=== PATIENT | male | born 1990 | race Caucasian/White ===

== ENCOUNTER 2021-05-24 11:07 | Inpatient (IN) | payer MEDICAID, SELFPAY ==
[2021-05-24 11:17] VITALS: BP 138/90; PULSE 105; RESP 22; TEMP 37.2; O2SAT 96; BMI 34.4
[2021-05-24 11:30] VITALS: BP 126/75; PULSE 108; RESP 16; TEMP 36.5; O2SAT 97
--- NOTE | 2021-05-24 11:30 | ECG_ITS ---
[facility], Formerly [facility] Test Date: 2021-05-24 Pat Name: Raciel Red Department: Room: Gender: Male Director Of Head Start: : 1990 Requested By: Russ Joseph Order Number: [id number] Crystal MD: Stephanie Daniels M.D. Measurements Intervals Triplett Rate: 107 P: 56 DE: 130 QRS: 66 QRSD: 88 T: 16 QT: 309 QTc: 414 Interpretive Statements SINUS TACHYCARDIA ABNORMAL RHYTHM ECG Compared to ECG 01/08/2017 12:05:56 Sinus rhythm no longer present Electronically Signed On 05-25-2021 18:42:53 CDT by Stephanie Daniels M.D. [id number]
--- NOTE | 2021-05-24 11:30 | XR_ITS ---
WS: [id number] XR chest 1V portable [id number] REASON FOR EXAM: psych clearance FINDINGS: The heart and mediastinum are within normal limits. Calcified granulomatous disease in both hemithoraces. No active pulmonary parenchymal pleural disease. Bony thorax intact. XR/XR chest 1V portable [id number] IMPRESSION: No significant chest abnormality.
--- NOTE | 2021-05-24 11:38 | CT_ITS ---
WS: [id number] CT HEAD NONCONTRAST HISTORY: new onset mental issues TECHNIQUE: Contiguous axial imaging performed through the brain in 2.5 mm imaging. Bone and soft tiss ue windows. Sagittal and coronal reformats reviewed. All CT scans at [facility] use at least one of these dose optimization techniques: automated exposure control; mA and/or kV adjustment per pa tient size (includes targeted exams where dose is matched to clinical indication); or iterative recon struction. DLP: 936.18 mGy.cm COMPARISON: None available. No acute intracranial hemorrhage, midline shift or mass effect. No atrophy or prior infarcts or herniation. Ventricles: Normal size with no hydrocephalus. Paranasal sinuses: As visualized are clear. Mastoid air cells: Normal vessels. Cerumen in the external auditory canals. Calvarium and scalp: Skull is intact with no soft tissue edema or swelling. CT/CT head wo con* [id number] IMPRESSION: 1. No acute intracranial hemorrhage or edema. 2. No atrophy.
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
[2021-05-24 12:11] LABS: Basophils % 0.6 %; Eosinophils # 0.1 10^3/uL (0.0-0.8); Eosinophils % 1.2 %; Hematocrit 45.5 % (42.0-52.0); Hemoglobin 15.2 g/dL (11.7-16.6); Lymphocytes # 2.4 10^3/uL (0.8-4.8); Lymphocytes % 33.6 %; Mean Corpuscular HGB Conc 33.4 g/dL (30.0-36.0); Mean Corpuscular Hemoglobin 30.2 pg (28.0-34.0); Mean Corpuscular Volume 90.5 fl (80-94); Mean Platelet Volume 11.4 fL (7.4-10.4); Monocytes # 0.5 10^3/uL (0.2-0.9); Monocytes % 7.2 %; Neutrophils # 4.15 10^3/uL (1.8-7.7); Nucleated Red Blood Cells % 0 %; Platelet Count 258 10^3/cmm (130-400); Red Blood Count 5.03 10^6/uL (4.1-5.3); Red Cell Distribution Width 12.4 % (12.1-15.1); White Blood Count 7.3 10^3/uL (4.0-10.0)
[2021-05-24 12:46] LABS: Alanine Aminotransferase 32 U/L (0-41); Albumin Level 4.8 g/dL (3.5-5.2); Alkaline Phosphatase 108 IU/L (40-130); Anion Gap 15.6 (5-19); Aspartate Amino Transferase 22 U/L (0-40); Blood Urea Nitrogen 13 mg/dL (6-20); Calcium 9.4 mg/dL (8.5-10.5); Carbon Dioxide 25 mmol/L (22-29); Chloride 103 mmol/L (98-107); Globulin 2.4 g/dL (1.3-4.6); Glomerular Filtration Rate 113.5 mL/min (90-130); Glucose 86 mg/dL (65-115); Osmolality Calculated 287 mOsm/kg (285-295); Potassium 4.6 mmol/L (3.5-5.1); Sodium 139 mmol/L (136-145); Thyroid Stimulating Hormone 0.92 uIU/mL (0.27-4.20); Total Bilirubin 0.3 mg/dL (0.15-1.2); Total Protein 7.2 g/dL (6.6-8.7)
[2021-05-24 12:48] LABS: Urine Appearance SL Hazy (CLEAR); Urine Color Straw (Yellow); pH Urine 7 (5-7)
[2021-05-24 12:49] LABS: Add Urine Microscopic? YES; Amphetamines Screen Urine Negative (Negative); Bacteria Urine TRACE /hpf; Barbiturates Screen Urine Negative (Negative); Benzodiazepines Screen Urine Negative (Negative); Bilirubin Urine Neg (Negative); Blood Urine Trace (Negative); Cocaine Screen Urine Negative (Negative); Glucose Urine UA Norm (Normal); Ketones Urine Negative (Negative); Leukocyte Esterase Urine Negative (Negative); Mucus Urine TRACE /hpf; Nitrate Urine Negative (Negative); Opiate Screen Urine Negative (Negative); PCP Screen Urine Negative (Negative); Protein Urine Neg (Negative); RBC Urine 0-4 /hpf (0-2); THC Screen Urine Negative (Negative); Urobilinogen Urine Norm (Negative); WBC Urine 0-4 /hpf (0-5)
[2021-05-24 12:50] LABS: Add Urine Culture? No; Sperm Urine 3+ /hpf
[2021-05-24 12:57] LABS: Acetaminophen < 5.0 ug/mL (10-30); Alcohol Level < 10 mg/dL (0-10); Salicylate < 0.3 mg/dL (3-10)
[2021-05-24 14:00] VITALS: BP 127/76; PULSE 107; RESP 18; TEMP 36.9; O2SAT 97
[2021-05-24] MEDS: acetaminophen 325 mg Tablet 650 MG PO (18:58)
[2021-05-24 21:25] VITALS: BP 127/76; PULSE 88; RESP 18; TEMP 36.9; O2SAT 97
[2021-05-24] MEDS: prazosin 1 mg Capsule 2 MG PO (21:27)
[2021-05-24] MEDS: hyDROXYzine 25 mg Capsule 50 MG PO (21:27)
[2021-05-24] MEDS: divalproex ER 250 mg Tablet (24H) PO (21:27)
[2021-05-24] MEDS: trazodone 50 mg Tablet PO (21:28)
[2021-05-24] MEDS: haloperidol 5 mg Tablet 7.5 MG PO (21:28)
[2021-05-24] MEDS: quetiapine XR (24HR) 50 mg Tablet 400 MG PO (21:29)
--- NOTE | 2021-05-24 23:47 | PC.NURSE ---
PRN 2127 Administered 50mg Trazodone for a sleep aid, 50mg Vistaril for anxiety. Will continue to monitor pt.
[2021-05-25 06:00] VITALS: BP 127/76; PULSE 88; RESP 18; TEMP 36.9; O2SAT 97
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
[2021-05-25] MEDS: pantoprazole DR 40 mg Tablet PO (09:33)
[2021-05-25] MEDS: lisinopril 20 mg Tablet PO (09:33)
[2021-05-25] MEDS: PARoxetine 20 mg Tablet 40 MG PO (09:33)
[2021-05-25] MEDS: haloperidol 5 mg Tablet 2.5 MG PO (09:34)
[2021-05-25] MEDS: ondansetron 4 MG Tablet PO (09:34)
[2021-05-25] MEDS: cetirizine 10 mg Tablet PO (09:34)
[2021-05-25] MEDS: atorvastatin 40 mg Tablet 20 MG PO (09:34)
[2021-05-25] MEDS: divalproex ER 250 mg Tablet (24H) PO ×3 (09:35→20:37)
[2021-05-25 14:00] VITALS: BP 127/76; PULSE 88; RESP 18; TEMP 36.9; O2SAT 97
[2021-05-25] MEDS: polyethylene glycol 3350 Pkt 17 gm PO (14:04)
[2021-05-25] MEDS: prazosin 1 mg Capsule 2 MG PO (20:36)
[2021-05-25] MEDS: haloperidol 5 mg Tablet 7.5 MG PO (20:36)
[2021-05-25] MEDS: hyDROXYzine 25 mg Capsule 50 MG PO (20:37)
[2021-05-25] MEDS: trazodone 50 mg Tablet PO (20:37)
[2021-05-25] MEDS: quetiapine XR (24HR) 50 mg Tablet 400 MG PO (20:38)
[2021-05-25 22:00] VITALS: BP 122/81; PULSE 100; RESP 18; TEMP 36.9; O2SAT 98
--- NOTE | 2021-05-26 02:42 | PC.NURSE ---
PRN 7 Administered 50mg Trazodone for sleep, 50mg Vistaril for anxiety. Will continue to monitor.
[2021-05-26 06:00] VITALS: BP 124/84; PULSE 105; RESP 17; TEMP 36.7; O2SAT 97
[2021-05-26] MEDS: polyethylene glycol 3350 Pkt 17 gm PO ×2 (07:55→19:36)
[2021-05-26] MEDS: cetirizine 10 mg Tablet PO (07:55)
[2021-05-26] MEDS: pantoprazole DR 40 mg Tablet PO (07:55)
[2021-05-26] MEDS: PARoxetine 20 mg Tablet 40 MG PO (07:56)
[2021-05-26] MEDS: atorvastatin 40 mg Tablet 20 MG PO (07:56)
[2021-05-26] MEDS: divalproex ER 250 mg Tablet (24H) PO ×3 (07:56→21:15)
[2021-05-26] MEDS: haloperidol 5 mg Tablet 2.5 MG PO (07:57)
[2021-05-26] MEDS: lisinopril 20 mg Tablet PO (07:57)
[2021-05-26] MEDS: hydrocortisone 1% cream 28 gm 1 APPLIC TOPICAL (09:27)
--- NOTE | 2021-05-26 10:05 | PC.NURSE ---
PRN HYDROCORTISONE CREAM 1 APPLICATION APPLIED TO LEFT UPPER LEG FOR C/O ITCHING
[2021-05-26 14:00] VITALS: BP 117/70; PULSE 70; RESP 16; TEMP 36.8; O2SAT 98
--- NOTE | 2021-05-26 16:43 | PM.NPN ---
Subjective NPU Subjective: Interval history: Patient presents today reporting not having the negative thoughts he was having before the only report he was having was about anxiety and he had also reported doing better with the daytime Seroquel. We reached out to his home and identified that they just need a short notice before they will be able to come pick him up for discharge. We discussed the likelihood of discharge in the next 48 hours. Mental Status Exam MSE Comments: This is an obese, white male, with adequate dress, grooming, and eye contact. No abnormal movements except for psychomotor agitation. Cooperative with exam in no acute distress. Speech was slightly decreased volume, normal rate. Mood described as Okay; affect congruent. Thought process, organized. Thought content: patient denied current suicidal or homicidal ideation, there were no delusions reported or noted, patient denied any auditory or visual hallucinations. Attention and concentration were intact, and memory appeared reliable, but none were formally tested. He is alert and oriented times three. Insight and judgment appeared limited, impulse control seemed fair. Intellectual ability was impaired. Vitals/I&O/Wt Last Vital Signs Temp 97.8 F 05/26/21 22:00 Pulse 99 05/26/21 22:00 Resp 18 05/26/21 22:00 BP 135/80 05/26/21 22:00 Pulse Ox 97 05/26/21 22:00 Weight last 48 hrs Weight 108.862 kg Data NPU : 05/24/21 12:00 05/24/21 12:00 A&P Additional A&P Information (1) Suicidal ideation: (2) Intellectual disability: (3) Psychosis: (4) Impulse control disorder: Additional A&P Information This is a 30-year-old, white male, with a long history of intellectual disability, impulse control issues, and reports of hallucinations, who presents reporting that he is better since he has been in the hospital. RECOMMENDATION AND PLAN: 1. Continue current medications. 2. Encourage individual, group, and milieu therapy. 3. Continue q-15 minute checks for safety. Involuntary Hold Information 96 Hour Hold: 96 Hour Involuntary Admission: No Attestations NPU Medical Necessity Statement*: Inpatient hospitalization is medically necessary and the clinically appropriate intervention, at this time. We will monitor medications and make changes as indicated. Likely length of stay is 1-3 days. Coding Level of Care Code Acute Environmental Education Specialist for Tila Ryan
[2021-05-26] MEDS: haloperidol 5 mg Tablet 7.5 MG PO (21:14)
[2021-05-26] MEDS: quetiapine XR (24HR) 300 mg Tablet PO (21:14)
[2021-05-26] MEDS: prazosin 1 mg Capsule 2 MG PO (21:14)
[2021-05-26] MEDS: hyDROXYzine 25 mg Capsule 50 MG PO (21:14)
[2021-05-26] MEDS: quetiapine XR (24HR) 50 mg Tablet 100 MG PO (21:14)
[2021-05-26] MEDS: nicotine 2 mg Gum BUCCAL (21:21)
[2021-05-26 22:00] VITALS: BP 135/80; PULSE 99; RESP 18; TEMP 36.6; O2SAT 97
[2021-05-26] MEDS: haloperidol 5 mg Tablet PO (22:00)
--- NOTE | 2021-05-27 00:24 | PC.NURSE ---
prn 2114 administered vistaril 50mg for some anxiety, will continue to monitor.
--- NOTE | 2021-05-27 00:25 | PC.NURSE ---
Addendum entered by Karime Patel LPN 05/27/21 00:54: 2230 Pt is sleeping with both eyes shut. Original Note: PRN 2200 Administered 5mg Halodol for the pt having s/s of anxiety and worry. Pt stated that when he closed his eyes he heard the Devil command him to harm his current roommate and or others on the unit. I spoke with him and administered med, pt now in his room alone. Nurse redirected Pt to lay down for some rest. Will continue to monitor pt.
[2021-05-27 05:22] VITALS: BMI 34.4
[2021-05-27 06:00] VITALS: BP 96/62; PULSE 106; RESP 17; TEMP 36.6; O2SAT 98
[2021-05-27] MEDS: polyethylene glycol 3350 Pkt 17 gm PO ×2 (07:57→20:37)
[2021-05-27] MEDS: cetirizine 10 mg Tablet PO (07:57)
[2021-05-27] MEDS: lisinopril 20 mg Tablet PO (07:57)
[2021-05-27] MEDS: pantoprazole DR 40 mg Tablet PO (07:58)
[2021-05-27] MEDS: divalproex ER 250 mg Tablet (24H) PO ×3 (07:58→20:35)
[2021-05-27] MEDS: PARoxetine 20 mg Tablet 40 MG PO (07:58)
[2021-05-27] MEDS: atorvastatin 40 mg Tablet 20 MG PO (07:59)
[2021-05-27] MEDS: haloperidol 5 mg Tablet 2.5 MG PO (08:00)
[2021-05-27] MEDS: hydrocortisone 1% cream 28 gm 1 APPLIC TOPICAL (08:35)
--- NOTE | 2021-05-27 08:35 | PC.NURSE ---
PRN HYDROCORTISONE CREAM 1 APPLICATION APPLIED TO LEFT UPPER LEG FOR C/O ITCHING
[2021-05-27 14:00] VITALS: BP 107/74; PULSE 110; RESP 17; TEMP 36.7; O2SAT 97
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
[2021-05-27] MEDS: nicotine 2 mg Gum BUCCAL (19:54)
[2021-05-27] MEDS: haloperidol 5 mg Tablet 7.5 MG PO (20:34)
[2021-05-27] MEDS: quetiapine XR (24HR) 300 mg Tablet PO (20:35)
[2021-05-27] MEDS: prazosin 1 mg Capsule 2 MG PO (20:35)
[2021-05-27] MEDS: quetiapine 100 mg Tablet PO (20:57)
[2021-05-27 21:14] VITALS: BP 134/80; PULSE 92; RESP 16; TEMP 37.1; O2SAT 97
[2021-05-28 06:00] VITALS: BP 106/58; PULSE 116; RESP 16; TEMP 36.6; O2SAT 93
[2021-05-28] MEDS: atorvastatin 40 mg Tablet 20 MG PO (08:02)
[2021-05-28] MEDS: polyethylene glycol 3350 Pkt 17 gm PO (08:02)
[2021-05-28] MEDS: lisinopril 20 mg Tablet PO (08:03)
[2021-05-28] MEDS: divalproex ER 250 mg Tablet (24H) PO (08:03)
[2021-05-28] MEDS: haloperidol 5 mg Tablet 2.5 MG PO (08:03)
[2021-05-28] MEDS: cetirizine 10 mg Tablet PO (08:04)
[2021-05-28] MEDS: pantoprazole DR 40 mg Tablet PO (08:04)
[2021-05-28] MEDS: PARoxetine 20 mg Tablet 40 MG PO (08:04)
[2021-05-28] MEDS: nicotine 2 mg Gum BUCCAL (08:53)
[2021-05-28] MEDS: diphenhydrAMINE 50 mg Capsule PO (10:34)
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
[2021-05-28 11:39] VITALS: BP 106/58; PULSE 116; RESP 16; TEMP 36.6; O2SAT 93
== END 2021-05-28 13:32 | disposition home or self-care (01) | DRG 885 ==
LOC: ER 13:22 → NP 15:07
PROVIDERS: Admitting Provider Psychiatry & Neurology Psychiatry; Emergency Provider Family Medicine; PCP Internal Medicine; Visit Provider Psychiatry & Neurology Psychiatry
DX: F29 Unspecified psychosis not due to a substance or known physiological condition (principal); R45.851 Suicidal ideations; F79 Unspecified intellectual disabilities; F63.9 Impulse disorder, unspecified
CPT/HCPCS: 70450; 71045; 80053; 80306; 80307; 81001; 84443; 85025; 93005; 97165; 99285; Q0162; Q0163

== ENCOUNTER → 2021-10-29 11:42 | Outpatient (BNVA) | payer MEDICAID, SELFPAY | PROVIDERS: PCP Internal Medicine; Visit Provider Nurse Practitioner | DX: I10 Essential (primary) hypertension (principal); K59.01 Slow transit constipation | CPT/HCPCS: 80053; 80061; 84443; 85025 ==

== ENCOUNTER → 2022-03-12 10:00 | Outpatient (BNVA) | payer MEDICAID, SELFPAY | PROVIDERS: PCP Internal Medicine; Visit Provider Nurse Practitioner | DX: I10 Essential (primary) hypertension (principal); J30.89 Other allergic rhinitis; K21.9 Gastro-esophageal reflux disease without esophagitis; R00.0 Tachycardia, unspecified; K59.01 Slow transit constipation; Z11.3 Encounter for screening for infections with a predominantly sexual mode of transmission | CPT/HCPCS: 36415; 80053; 80061; 81000; 84443; 85025; 86580; 86592; 87491; 87591 ==

== ENCOUNTER → 2022-05-29 14:00 | Outpatient (BNVA) | payer MEDICAID, SELFPAY | PROVIDERS: PCP Nurse Practitioner Family; Visit Provider Nurse Practitioner Family | DX: M25.532 Pain in left wrist (principal) | CPT/HCPCS: 73110 ==

== ENCOUNTER → 2022-09-24 16:44 | Outpatient (BNVA) | payer MEDICAID, SELFPAY | PROVIDERS: PCP Nurse Practitioner Family; Visit Provider Nurse Practitioner | DX: I10 Essential (primary) hypertension (principal); R00.0 Tachycardia, unspecified | CPT/HCPCS: 80053; 80061; 81000; 84443; 85025 ==

== ENCOUNTER → 2022-11-21 13:11 | Outpatient (BNVA) | payer MEDICAID, SELFPAY | PROVIDERS: PCP Nurse Practitioner; Visit Provider Nurse Practitioner Family | DX: J02.9 Acute pharyngitis, unspecified (principal) | CPT/HCPCS: 87071; 87880 ==

== ENCOUNTER 2023-01-04 10:06 | Emergency (ER) | payer MEDICAID, SELFPAY ==
[2023-01-04 10:08] VITALS: BP 132/98; PULSE 125; RESP 16; TEMP 36.4; O2SAT 94; BMI 30.9
--- NOTE | 2023-01-04 10:18 | PC.NURSE ---
triage assessment done under supervisor small appliance assembly of this RN
--- NOTE | 2023-01-04 10:28 | XRR_ITS ---
PROCEDURE INFORMATION: Exam: XR Lumbosacral Spine Exam date and time: 01/04/2023 10:50 AM Age: 32 years old Clinical indication: Injury or trauma; Fall; Blunt trauma (contusions or hematomas); Additional info: Fall injury with low back pain TECHNIQUE: Imaging protocol: Radiologic exam of the lumbosacral spine. Views: 2 or 3 views. COMPARISON: No relevant prior studies available. FINDINGS: Bones/joints: Spinal alignment is normal. Vertebral body height is maintained. Intervertebral disc height is maintained. No acute fracture. The visible portion of the pelvis and sacrum is intact. Soft tissues: Visible soft tissues are unremarkable. XR/XR lumbar spine 2-3V* [id number] IMPRESSION: No acute findings.
--- NOTE | 2023-01-04 10:29 | ED_ITS ---
HPI - Fall General: Chief Complaint: Fall Stated Complaint: LOW BACK PAIN S/P FALL Time Seen by Provider: 01/04/23 10:08 History of Present Illness: Patient is a 32-year-old male comes to the ED via EMS after fall. Patient lives in a alf and has a property economist with him. Patient has a history of ADHD and seizures. Research Environmental Engineer is helping provide history as well. He was standing up to go to the bathroom this morning and his legs gave out on him and he fell down and his lower back hit the tub. He is now complaining of moderate to severe lower back pain bilaterally. Pain stays in the lower back and does not radiate denies loss of consciousness, headache, vomiting or seizure-like activity after fall. Research Environmental Engineer is also concerned that patient might be getting a UTI because he has been acting a little different than usual. Denies any dysuria or hematuria. Associated symptoms-after fall: Denies abdominal pain, chest pain, headache(s), hematuria or neck pain Review of Systems Const: Denies: fever(s), chills or fatigue Eyes: Denies: change in vision or eye discomfort ENMT: Denies: throat pain, odynophagia, nasal discharge or nasal congestion Card: Denies: chest pain, palpitations, edema, swelling of feet/ankles, dyspnea on exertion or orthopnea Resp: Denies: dyspnea, productive cough or non-productive cough GI: Denies: abdominal pain, nausea, vomiting, diarrhea, constipation or hematochezia : Denies: flank pain, difficulty urinating, dysuria or hematuria Musc: Reports: back pain; Denies: neck pain or extremity swelling Skin/Breast: Denies: rash or new lesions Neuro: Denies: headache(s), numbness in extremities or weakness in extremities PFS ED PFSH: Medical History Acid reflux ADHD Anxiety with depression Constipation Constipation, slow transit Environmental and seasonal allergies History of seizure age 11 last seizure Insomnia Tachycardia Surgical History No history of previous surgery Family History Other Unknown family medical history Social History Smoking and tobacco status: never smoked Second hand smoke exposure: No Smoking risk assessment/counseling performed?: No Alcohol intake: never Desire information about alcohol rehabilitation?: No Counseling given: No Substance/Drug Use: never Desire information about substance/drug rehabilitation?: No Counseling given: No Adopted: No Caregiver/support person: Yes Lives independently: No ([employer] [facility] Home) Household members: other Details: Staff Housing: House Marital status: Single Number of children: 0 Number of grandchildren: 0 Highest education level completed: High School Graduate service: No Current occupational status: disabled Current occupational exposures/hazards: No Do you think of yourself as: Straight/Heterosexual Current gender identity: Male Physical Exam Const: COMMON NORMALS: patient oriented x3 HENMT: COMMON NORMALS: normocephalic HEAD & SCALP: normocephalic MOUTH: Normal oral and palatal mucosa present THROAT: posterior oropharynx normal and uvula midline Neck/C-Spine: COMMON NORMALS: supple GENERAL: Yes normal visual inspection Resp: COMMON NORMALS: normal respiratory effort, No retractions, No use of accessory muscles and clear to auscultation bilaterally AUSCULTATION: clear to auscultation bilaterally Cardio: COMMON NORMALS: regular rate, regular rhythm, S1 normal heart sound present, S2 normal heart sound present, No gallops present (Cardio), No clicks present (Cardio), No murmurs present (Cardio) and Peripheral pulses 2+ throughout RATE: regular rate RHYTHM: regular rhythm HEART SOUNDS: S1 normal heart sound present and S2 normal heart sound present PERIPHERAL PULSES: Peripheral pulses 2+ throughout GI: COMMON NORMALS: Normal to inspection, nondistended, normoactive bowel sounds present, Soft to palpation, non-tender and no masses PALPATION: Yes Soft to palpation : COMMON NORMALS: Yes no CVA tenderness BLADDER/KIDNEY EXAM: Yes no CVA tenderness Back/Pelvis: COMMON NORMALS: no CVA tenderness LUMBAR SPINE/LOWER BACK: Yes paraspinal muscle tenderness Lumbar paraspinal muscle tenderness: bilateral Bilateral lumbar paraspinal muscle tenderness: L3, L4 and L5 Extremity: COMMON NORMALS: normal to inspection Neuro: COMMON NORMALS: patient oriented x3 GAIT: Yes Normal gait present Skin: GENERAL SKIN EXAM: dry skin Course Vital Signs: Vital signs: Vital Signs Temperature 97.6 F 01/04/23 10:08 Pulse Rate 122 H 01/04/23 10:32 Respiratory Rate 16 01/04/23 10:32 Blood Pressure 132/98 01/04/23 10:32 Pulse Oximetry 91 01/04/23 10:32 Oxygen Delivery Me thod Room Air 01/04/23 10:32 MDM - Fall Medical Decision Making Patient is a 32-year-old male comes to the ED via EMS after fall. Patient lives in a alf and has a property economist with him. Patient has a history of ADHD and seizures. Research Environmental Engineer is helping provide history as well. He was standing up to go to the bathroom this morning and his legs gave out on him and he fell down and his lower back hit the tub. He is now complaining of moderate to severe lower back pain bilaterally. Pain stays in the lower back and does not radiate denies loss of consciousness, headache, vomiting or seizure-like activity after fall. Research Environmental Engineer is also concerned that patient might be getting a UTI because he has been acting a little different than usual. Denies any dysuria or hematuria. Vitals are stable. Exam of patient shows some bilateral lumbar paraspinal muscle tenderness but rest of exam is benign. He appears nontoxic in no acute distress or pain. Lumbar spine x-ray shows no acute findings. UA is unremarkable. Patient was given a pain med and muscle relaxer here in the ED. He was stable for discharge home and diagnosed with back pain due to injury. Told to follow-up with PCP in the next week for reevaluation. Return to ED precautions given. Patient and patient's property economist understood and agreed with plan. Lab Data I reviewed the patient's lab results. Radiology Impressions Lumbar Spine X-Ray 01/04/23 10:28 IMPRESSION: No acute findings. Laboratory Results Urine Color Yellow (Yellow) 01/04/23 12:38 Urine Appearance Clear (CLEAR) 01/04/23 12:38 Urine pH 5 (5-7) 01/04/23 12:38 Ur Specific [place] 1.015 (1.005-1.030) 01/04/23 12:38 Urine Protein 1+ (Negative) H 01/04/23 12:38 Urine Glucose (UA) Norm (Normal) 01/04/23 12:38 Urine Ketones 1+ (Negative) H 01/04/23 12:38 Urine Blood Neg (Negative) 01/04/23 12:38 Urine Nitrate Negative (Negative) 01/04/23 12:38 Urine Bilirubin 1+ (Negative) H 01/04/23 12:38 Urine Urobilinogen Norm mg/dL (Negative) 01/04/23 12:38 Ur Leukocyte Esterase Negative (Negative) 01/04/23 12:38 Urine RBC 0-4 /hpf (0-2) H 01/04/23 12:38 Urine WBC 5-10 /hpf (0-5) H 01/04/23 12:38 Ur Squamous Epith Cells 0-4 /hpf (0-5) H 01/04/23 12:38 Amorphous Sediment Not Reportable 01/04/23 12:38 Urine Bacteria Trace /hpf (NONE) 01/04/23 12:38 Urine Mucus 4+ /hpf 01/04/23 12:38 Discharge Plan Discharge Patient Disposition: Home Clinical Impression: Back pain due to injury Condition: Stable Prescriptions: New ibuprofen 800 mg tablet 800 mg PO Q8H PRN (Reason: pain) Qty: 30 0RF methocarbamol 750 mg tablet 750 mg PO Q8H PRN (Reason: Back muscle spasms and pain) Qty: 20 0RF No Action trihexyphenidyl 2 mg tablet 2 mg PO TID ibuprofen 600 mg tablet 600 mg PO TID PRN (Reason: pain) Qty: 30 0RF triamcinolone acetonide 0.1 % cream 1 applic topical BID 10 Days Qty: 80 0RF Rx Instructions: do not use on face or genitals cetirizine 10 mg tablet 10 mg PO DAILY Qty: 30 2RF famotidine [Pepcid] 20 mg tablet 20 mg PO DAILY PRN (Reason: acid reflux) Qty: 30 2RF fluticasone propionate 50 mcg/actuation spray,suspension 1 spray intranasal DAILY Qty: 16 2RF Rx Instructions: administer into each nostril polyethylene glycol 3350 [Miralax] 17 gram/dose powder 17 g PO DAILY PRN (Reason: constipation) Qty: 510 2RF propranolol 10 mg tablet 10 mg PO BID Qty: 60 2RF Rx Instructions: dose decrease Artificial Tears(pvalch-povid) 0.5-0.6 % drops 2 drp ophthalmic (eye) QID PRN (Reason: dryness) Qty: 15 0RF atorvastatin 20 mg tablet 20 mg PO DAILY Qty: 30 5RF lisinopril 10 mg tablet 10 mg PO DAILY Qty: 30 5RF acetaminophen 325 mg tablet 650 mg PO QID PRN (Reason: Pain) haloperidol 5 mg tablet 2.5 mg PO DAILY haloperidol 5 mg tablet 7.5 mg PO DAILY@2100 dextromethorphan-guaifenesin 10-100 mg/5 mL Syrup 10 ml PO Q6H PRN (Reason: COUGH/CONGESTION) paroxetine HCl 40 mg tablet 40 mg PO DAILY prazosin 2 mg capsule 2 mg PO BEDTIME divalproex 250 mg tablet extended release 24 hr 250 mg PO TID quetiapine 400 mg tablet extended release 24 hr 400 mg PO BEDTIME quetiapine 25 mg Tablet 50 mg PO BID PRN (Reason: Anxiety) 30 Days Qty: 120 1RF Discharge Orders: Discharge ED (Routine); Ordered 01/04/23 Ordered By: Justino Porras Referrals: Mariya Booker FNP-C [Primary Care Provider] - Discharge Diet: Regular Discharge Activity: Increase activity as tolerated Patient Instructions: Back Pain (ED) Activity Restrictions/Additional Instructions: Follow-up with medical provider as directed in the next 5 to 7 days for reevaluation. Take medications as prescribed. Return to the ER or your medical provider if condition worsens. Please read and understand discharge instructions. Thank you for choosing [facility] for your healthcare needs today. Please realize this is an emergency room and that we are providing you with a medical screening exam and this may not be complete and all inclusive of all the testing and or work up that you may need to determine your ailment or severity of your illness. It is very important that you follow up as instructed or that you return to the Emergency Department should you have concerns or if your condition changes or worsens in any way. Coding Level of Care Code ED Bond Manager for Tila Ryan
[2023-01-04 10:32] VITALS: BP 132/98; PULSE 122; RESP 16; O2SAT 91
[2023-01-04] MEDS: methocarbamol 750 mg Tablet PO (10:44)
[2023-01-04] MEDS: HYDROcodone-acetaminophen 5-325 mg Tablet 1 TAB PO (10:44)
--- NOTE | 2023-01-04 10:53 | ECG_ITS ---
[facility] Test Date: 2023-01-04 Pat Name: Raciel Red Department: Room: Gender: Male Worm Sorter: : 1990 Requested By: Justino Porras Order Number: [id number] Cyrstal MD: Sharif Dawn M.D. Measurements Intervals [place] Rate: 118 P: 41 CA: 96 QRS: 55 QRSD: 87 T: 21 QT: 299 QTc: 419 Interpretive Statements SINUS TACHYCARDIA WITH SHORT CA INTERVAL ABNORMAL RHYTHM ECG Compared to ECG 05/24/2021 12:04:41 Short CA interval now present Electronically Signed On 01-04-2023 16:39:58 CDT by Sharif Dawn M.D. [id number]
[2023-01-04 12:57] LABS: Add Urine Microscopic? YES; Bacteria Urine TRACE /hpf; Bilirubin Urine 1+ (Negative); Blood Urine Neg (Negative); Glucose Urine UA Norm (Normal); Ketones Urine 1+ (Negative); Leukocyte Esterase Urine Negative (Negative); Mucus Urine 4+ /hpf; Nitrate Urine Negative (Negative); Protein Urine 1+ (Negative); RBC Urine 0-4 /hpf (0-2); Specific Gravity, Urine 1.015 (1.005-1.030); Squamous Epithelial Cell Urine 0-4 /hpf (0-5); Urine Appearance Clear (CLEAR); Urine Color Yellow (Yellow); Urobilinogen Urine Norm (Negative); pH Urine 5 (5-7)
[2023-01-04 12:58] LABS: Add Urine Culture? No
== END 2023-01-04 13:34 | disposition home or self-care (01) ==
PROVIDERS: Emergency Provider Physician Assistant; PCP Nurse Practitioner
DX: S39.92XA Unspecified injury of lower back, initial encounter (principal); W18.2XXA Fall in (into) shower or empty bathtub, initial encounter
CPT/HCPCS: 72100; 81001; 87086; 93005; 99285

== ENCOUNTER → 2023-03-24 08:54 | Outpatient (BNVA) | payer MEDICAID, SELFPAY | PROVIDERS: PCP Nurse Practitioner; Visit Provider Nurse Practitioner | DX: I10 Essential (primary) hypertension (principal); Z11.3 Encounter for screening for infections with a predominantly sexual mode of transmission | CPT/HCPCS: 80053; 80061; 81000; 85025; 86592 ==

== ENCOUNTER → 2023-10-28 09:17 | Outpatient (BNVA) | payer MEDICAID, SELFPAY | PROVIDERS: PCP Nurse Practitioner; Visit Provider Nurse Practitioner | DX: I10 Essential (primary) hypertension (principal); E78.2 Mixed hyperlipidemia; R00.0 Tachycardia, unspecified; Z79.899 Other long term (current) drug therapy | CPT/HCPCS: 80053; 80061; 81000; 84443; 85025 ==

== ENCOUNTER → 2023-10-29 | Outpatient (BNVA) | payer MEDICAID, SELFPAY | PROVIDERS: PCP Nurse Practitioner; Visit Provider Nurse Practitioner | DX: I10 Essential (primary) hypertension (principal); E78.2 Mixed hyperlipidemia; R00.0 Tachycardia, unspecified; R73.9 Hyperglycemia, unspecified | CPT/HCPCS: 83036 ==

== ENCOUNTER → 2023-12-31 10:28 | Outpatient (BNVA) | payer MEDICAID, SELFPAY | PROVIDERS: PCP Nurse Practitioner; Visit Provider Nurse Practitioner Family | DX: R05.9 Cough, unspecified (principal); R68.89 Other general symptoms and signs; J02.9 Acute pharyngitis, unspecified | CPT/HCPCS: 87071; 87400; 87880 ==

== ENCOUNTER → 2024-03-24 14:15 | Outpatient (BNVA) | payer MEDICAID, SELFPAY | PROVIDERS: PCP Nurse Practitioner; Visit Provider Nurse Practitioner | DX: E78.2 Mixed hyperlipidemia (principal); J30.89 Other allergic rhinitis; I10 Essential (primary) hypertension; K21.9 Gastro-esophageal reflux disease without esophagitis; K59.01 Slow transit constipation; R00.0 Tachycardia, unspecified; Z79.899 Other long term (current) drug therapy; H61.23 Impacted cerumen, bilateral; B37.9 Candidiasis, unspecified | CPT/HCPCS: 80053; 80061; 85025 ==

== ENCOUNTER → 2024-03-31 10:54 | Outpatient (BNVA) | payer MEDICAID, SELFPAY | PROVIDERS: PCP Nurse Practitioner; Visit Provider Nurse Practitioner | DX: I10 Essential (primary) hypertension (principal); Z79.899 Other long term (current) drug therapy | CPT/HCPCS: 81000 ==

== ENCOUNTER → 2024-06-24 09:01 | Outpatient (BNVA) | payer MEDICAID, SELFPAY | PROVIDERS: PCP Clinical Nurse Specialist Adult Health; Visit Provider Clinical Nurse Specialist Adult Health | DX: N39.0 Urinary tract infection, site not specified (principal) | CPT/HCPCS: 81000; 87086 ==

== ENCOUNTER → 2024-08-25 14:43 | Outpatient (BNVA) | payer MEDICAID, SELFPAY | PROVIDERS: PCP Nurse Practitioner; Visit Provider Nurse Practitioner | DX: E78.2 Mixed hyperlipidemia (principal); I10 Essential (primary) hypertension | CPT/HCPCS: 80053; 80061 ==

== ENCOUNTER → 2024-10-12 08:39 | Outpatient (BNVA) | payer MEDICAID, SELFPAY | PROVIDERS: PCP Nurse Practitioner; Visit Provider Nurse Practitioner Family | DX: R35.0 Frequency of micturition (principal) | CPT/HCPCS: 81000 ==

== ENCOUNTER → 2024-11-08 10:01 | Outpatient (BNVA) | payer MEDICAID, SELFPAY | PROVIDERS: PCP Nurse Practitioner; Visit Provider Nurse Practitioner | DX: Z79.899 Other long term (current) drug therapy (principal) | CPT/HCPCS: 80053; 80061; 80164; 84443; 85025 ==

== ENCOUNTER → 2025-05-04 10:21 | Outpatient (BNVA) | payer MEDICAID, SELFPAY | PROVIDERS: PCP Nurse Practitioner; Visit Provider Nurse Practitioner | DX: E78.2 Mixed hyperlipidemia (principal) | CPT/HCPCS: 80053; 80061; 85025 ==

== ENCOUNTER → 2025-06-08 09:52 | Outpatient (BNVA) | payer MEDICAID, SELFPAY | PROVIDERS: PCP Nurse Practitioner; Visit Provider Nurse Practitioner | DX: Z79.899 Other long term (current) drug therapy (principal) | CPT/HCPCS: 80053; 80061; 80164; 84481; 85025 ==

== ENCOUNTER → 2025-09-06 10:53 | Outpatient (BNVA) | payer MEDICAID, SELFPAY | PROVIDERS: PCP Nurse Practitioner; Visit Provider Clinical Nurse Specialist Adult Health | DX: J06.9 Acute upper respiratory infection, unspecified (principal) | CPT/HCPCS: 87880 ==